=== PATIENT | female | born 1990 | race Caucasian/White ===

== ENCOUNTER 2020-06-24 13:00 | Outpatient (RCR) | payer BC, SELFPAY ==
--- NOTE | 2020-06-24 14:30 | PC.NURSE ---
IN 1300 OUT 1410 HISTORY: Pt. delivered by emergency C/S at 38 weeks. had no complications after delivery. Mother had complications after delivery of large 2000 EBL. is now 14 days/weeks old. Infant appears to be well cared for. has been seen by ICP as scheduled. Infant last seen by ICP on Mother reports: She had an emergency C/S with a large blood loss. Infant was well in the hospital and had some weight loss. At 1 week appointment infant was down more than 10% from weight. ICP advised to supplement after breastfeedings. Mother states she was concerned with supplementation and stimulation of supply. Mother began finger feeding using a 5 Bengali feeding tube and syringe. Mother states she does not give the supplementation quickly as she does not want to discourage from . Mother puts infant to breast each feeding, reporting infant is fussy and will quickly fall asleep, mother will attempt for 15-20 minutes, then finger feed and pump for 20 minutes. Mother is pumping drops each session. Mother wishes: To increase supply and exclusively breastfeed. Currently at 4 wets per day and 4 small brown pasty stools per day. weight: 7#7 Discharge weight: ?? Mother does not remember Last Weight: 6#10 OBSERVATION: Mother is crying and very distraught, stating over and over she wants to exclusively breastfeed this . Mother states she had milk supply issues with first issue and never thought she would have to deal with low milk supply. Discussed how the large blood loss after delivery may have impacted mother's milk supply, and how at 2 weeks out it may be hard to increase supply. Mother has had adequate stimulation, diet and fluids without success. Mother is currently putting to breast 15-20minutes with 2-3 minutes of nursing. Mother has issues comprehending milk supply will not increase to exclusively breastfeed. Assured mother she had not done anything to cause the low milk supply and is doing everything correct with stimulation and attempting to breast. Offered and explained the Supplemental Nursing System(SNS) for mother as an alternative to finger feed, while having infant at breast. Mother is willing to attempt this feeding with the SNS. SNS filled with 2 oz of formula, demonstrated and explained the set up. With tube taped to nipple, infant eagerly latched and began nursing. Mother was able to independently latch using cross cradle and holding breast. eagerly latched and began nursing with rhythmic draws and freq swallowing noted. Infant completed 2 oz in less than 15 minutes. Reviewed if is at breast with SNS mother will also be receiving nursing stimulation and infant will receive all the milk mother has and may assist with a slight increase of supply. Mother states she feels confident to use the SNS at home. Advised to give infant the full 2 oz each feeding and increase as desires. Mother is very fixated on milk supply with crying and reporting this is all she thinks about. FOB is present for appointment. Suggested mother contact her OB for evaluation of PPD, FOB reports he will remind mother to call this afternoon. PLAN: Mother will follow above feeding plan using techniques for SNS feeder. Mother will call with further questions or concerns. Follow up phone call scheduled for 06/28/2020.
== END 2020-08-05 09:08 | disposition home or self-care (01) ==
LOC: ANHOBOP 13:00
PROVIDERS: Visit Provider Pediatrics
DX: Z39.1 Encounter for care and examination of lactating mother (principal)
CPT/HCPCS: 99212; G0463

== ENCOUNTER 2021-06-14 11:49 | Outpatient (CLI) | payer BC, SELFPAY ==
[2021-06-14 13:52] LABS: Beta HCG Quantitative 201.98 mIU/ML
== END 2021-06-14 11:50 | disposition home or self-care (01) ==
PROVIDERS: PCP Family Medicine Adolescent Medicine
DX: Z32.01 Encounter for pregnancy test, result positive (principal)
CPT/HCPCS: 36415; 84144; 84702

== ENCOUNTER 2021-06-19 12:10 | Emergency (ER) | payer BC, SELFPAY ==
--- NOTE | ~2021-06-19 | US_ITS ---
EXAMINATION: US OB <=14 wk fetus w TV DATE: 06/19/2021 15:47 INDICATION: Vaginal bleeding. HCG level 1500. TECHNIQUE: Real-time transabdominal and transvaginal obstetric ultrasound. FINDINGS: No prior studies for comparison. The uterus measures 9.5 x 6.5 x 5.7 cm. There is an intrauterine fluid collection with possible decid ual reaction which would correspond to a 4 week 6 day gestational sac (measurement 0.31 cm). No heart motions or pole identified. There is a 2.1 cm corpus luteal cyst. Left ovary is unremark able. IMPRESSION: 1. Possible intrauterine gestational sac which would correspond to a 4 week 6 day gestation. No pole or heart motions detected. Recommend follow-up with serial quantitative beta-hCG levels and ult rasound as clinically indicated. Reviewed, dictated and finalized at location A. IMPRESSION: 1. Possible intrauterine gestational sac which would correspond to a 4 week 6 d ay gestation. No pole or heart motions detected. Recommend follow-up with serial quantitative beta-hCG levels and ultrasound as clinically indicated.
[2021-06-19 12:12] VITALS: BP 122/76; PULSE 99; RESP 20; TEMP 36.9; O2SAT 98
[2021-06-19 13:57] LABS: Basophils Percent Auto 0.5 % (0.2-1.2); Eosinophils Absolute Auto 0.5 K/mm3 (0-0.3); Eosinophils Percent Auto 6.4 % (0-4.4); Hematocrit 38.6 % (37.0-47.0); Hemoglobin 12.4 g/dL (12.0-15.0); Immature Granulocyte Absolute 0.02 K/mm3 (0.00-0.031); Immature Granulocyte Percent A 0.3 % (0-0.5); Lymphocytes Absolute Auto 1.25 K/mm3 (0.9-3.2); Lymphocytes Percent Auto 16.3 % (18.3-44.2); Mean Corpuscular HGB Conc 32.1 g/dl (32-36); Mean Corpuscular Volume 93.5 fl (80-100); Mean Platelet Volume 9.5 fl (7.4-10.4); Monocytes Absolute Auto 0.5 K/mm3 (0.1-0.6); Monocytes Percent Auto 6.9 % (2.6-8.5); Neutrophils Absolute Auto 5.3 K/mm3 (1.3-6.7); Neutrophils Percent Auto 69.6 % (45.5-73.1); Platelet Count Result 191 k/mm3 (150-375); Red Blood Count 4.13 M/mm3 (4.2-5.4); Red Cell Distribution Width 13.3 % (11.5-14.5); White Blood Count 7.7 K/mm3 (4.5-10.0)
[2021-06-19 14:01] VITALS: BP 117/68; PULSE 80; RESP 12; O2SAT 98
[2021-06-19 15:16] VITALS: BP 106/72; PULSE 70; RESP 14; O2SAT 98
--- NOTE | 2021-06-19 15:49 | ED.FEMALEGU ---
HPI - Female Genitourinary General Chief complaint: Vaginal Bleeding Stated complaint: 6 weeks /bleeding Time Seen by Provider: 06/19/21 12:36 Source: patient Mode of arrival: ambulatory Limitations: no limitations History of Present Illness HPI Narrative: 30-year-old female She is G 4-5, P2, A2 Current EGA 6 weeks and is taking supplemental progesterone because of her 2 previous miscarriages and had outpatient hCG levels done last week which, although they were done at different labs, were rising Today she noticed some spotting after urinating, it was not enough to saturate a single pad and the pad she is now using is dry She does not have cramps, dysuria, or dizziness She knows her blood type, a positive Related Data Home Medications Medication Instructions Recorded Confirmed aripiprazole [Abilify] 7.5 mg PO DAILY 06/19/21 06/19/21 lamotrigine 50 mg PO DAILY 06/19/21 06/19/21 progesterone micronized 200 mg PO DAILY 06/19/21 06/19/21 Allergies Allergy/AdvReac Type Severity Reaction Status Date / Time No Known Allergies Allergy Verified 06/19/21 12:15 Review of Systems Review of Systems: All systems reviewed & are unremarkable except as noted in HPI and below Constitutional: Constitutional: Reports no additional constitutional complaints, Denies chills, Denies fever(s) and Denies headache(s) Eyes: Eyes: Reports no additional eye complaints and Denies change in vision ENT: Denies headache(s) and Denies sore throat Cardiovascular: Cardiovascular: Denies chest pain and Denies dyspnea Respiratory: Respiratory: Denies cough and Denies dyspnea Gastrointestinal: Gastrointestinal: Denies abdominal pain, Denies diarrhea, Denies nausea and Denies vomiting Genitourinary: Genitourinary: Reports abnormal vaginal bleeding, Denies urinary frequency, Denies dysuria and Denies pelvic pain Musculoskeletal: Musculoskeletal: Denies deformity and Denies numbness Integumentary/Breasts: Skin/Breast: Denies wounds Psychiatric: Psychiatric: Reports no additional psychiatric complaints Endocrine: Endocrine: Reports no additional endocrine complaints Hematologic/Lymphatic: Hematologic/Lymphatic: Reports no additional hematologic/lymphatic complaints Allergic/Immunologic: Allergic/Immunologic: Reports no additional allergic/immunologic complaints PMFSH Past Medical History Medical History (Updated 06/19/21 @ 16:31 by Carl Cobos MD) ADHD (attention deficit hyperactivity disorder) Bipolar I disorder with depression Cleft lip Surgical History Surgical History (Updated 03/22/21 @ 11:47 by Arelis Huff MD) H/O cleft lip repair Hx of section x2 Family History Family History (Updated 03/22/21 @ 11:06 by Kesha Putnam) Father AA (alcohol abuse) Diabetes mellitus Hypertension Depression Social History Social History (Updated 03/22/21 @ 11:49 by Arelis Huff MD) Social History: Smoking packs per day: 0.5 Smoking cigarettes per day: 10.0 Years smoked: 5 Smoking pack-years: 2.50 Smoking status: Former smoker Tobacco type: e-cigarettes/vaping Second hand tobacco smoke exposure: No Additional smoking assessment comments: weaning off vaping Alcohol intake: current Drinks per week: 1 Substance use: never Substance use type: does not use 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
[2021-06-19 16:40] VITALS: BP 109/72; PULSE 70; RESP 12; O2SAT 99
== END 2021-06-19 16:40 | disposition home or self-care (01) ==
PROVIDERS: Emergency Provider Emergency Medicine; PCP Family Medicine Adolescent Medicine
DX: Z34.01 Encounter for supervision of normal first pregnancy, first trimester (principal); Z87.891 Personal history of nicotine dependence
CPT/HCPCS: 36415; 76801; 76817; 84702; 85025; 99284

== ENCOUNTER 2021-08-10 21:33 | Emergency (ER) | payer BC, SELFPAY ==
[2021-08-10 22:22] VITALS: BP 110/64; PULSE 80; RESP 18; TEMP 36.5; O2SAT 100
[2021-08-10 23:09] LABS: Add Urine Microscopic? YES; Appearance Urine Cloudy (Clear); Bilirubin Urine Negative (Negative); Blood Urine 1+ (Negative); Color Urine Yellow (Yellow); Glucose Urine UA Negative (Negative); Ketones Urine Negative (Negative); Leukocyte Esterase Ur Negative LEU/UL (Negative); Mucus Urine Rare /lpf; Nitrate Urine Negative (Negative); Protein Urine Negative (Negative); Specific Grav Ur 1.028 (1.001-1.035); Squamous Epithelial Cell Urine Few /hpf (Few); Urobilinogen Urine Negative mg/dL (<2.0); WBC Urine 0-3 /hpf
[2021-08-10 23:24] LABS: Basophils Absolute Auto 0.1 K/mm3 (0.0-0.1); Basophils Percent Auto 0.6 % (0.2-1.2); Eosinophils Absolute Auto 0.3 K/mm3 (0-0.3); Eosinophils Percent Auto 3.1 % (0-4.4); Hemoglobin 12.3 g/dL (12.0-15.0); Immature Granulocyte Absolute 0.04 K/mm3 (0.00-0.031); Immature Granulocyte Percent A 0.4 % (0-0.5); Lymphocytes Absolute Auto 1.94 K/mm3 (0.9-3.2); Lymphocytes Percent Auto 21.6 % (18.3-44.2); Mean Corpuscular HGB Conc 33.2 g/dl (32-36); Mean Corpuscular Hemoglobin 30.5 pg (26-34); Mean Corpuscular Volume 91.8 fl (80-100); Mean Platelet Volume 9.1 fl (7.4-10.4); Monocytes Absolute Auto 0.5 K/mm3 (0.1-0.6); Monocytes Percent Auto 5.6 % (2.6-8.5); Neutrophils Absolute Auto 6.2 K/mm3 (1.3-6.7); Neutrophils Percent Auto 68.7 % (45.5-73.1); Platelet Count Result 230 k/mm3 (150-375); Red Blood Count 4.03 M/mm3 (4.2-5.4); Red Cell Distribution Width 13.5 % (11.5-14.5)
--- NOTE | 2021-08-11 00:02 | ED.NAVMDI ---
HPI - Nausea/Vomiting/Diarrhea General Chief complaint: Nausea/Vomiting/Diarrhea Stated complaint: vomiting/12 weeks preg Time Seen by Provider: 08/10/21 23:06 Source: patient Mode of arrival: ambulatory Limitations: no limitations History of Present Illness HPI Narrative: 30-year-old female G5, P3 EGA 12 weeks complaining of 1 day history of intractable vomiting. Patient had potato dumplings and since 5 PM she has been vomiting at first food and now bilious vomiting. No hematemesis, she does have abdominal pain with vomiting. No lower abdominal pain no pelvic pain no vaginal bleeding no vaginal discharge. Patient denies flank pain no dysuria no hematuria. Patient states no previous history of same. During her other pregnancies no fever abdominal pain is located bilateral subcostal and is sharp when she vomits. Improves without vomiting. Patient was told by BOX CAR LOADER to come in to make sure she was not dehydrated. No other complaints Related Data Home Medications Medication Instructions Recorded Confirmed aripiprazole [Abilify] 7.5 mg PO DAILY 06/19/21 06/19/21 lamotrigine 50 mg PO DAILY 06/19/21 06/19/21 progesterone micronized 200 mg PO DAILY 06/19/21 06/19/21 Allergies Allergy/AdvReac Type Severity Reaction Status Date / Time No Known Allergies Allergy Verified 06/19/21 12:15 Review of Systems Review of Systems: CONSTITUTIONAL: no fever, no weight loss, no confusion EYES: no vision changes, no eye pain ENT: no rhinorrhea, no sore throat, no difficulty swallowing CARDIOVASCULAR: no chest pain, no leg edema, no palpitations RESPIRATORY: no cough, no shortness of breath, no hemoptysis GASTROINTESTINAL: positive abdominal pain, positive nausea, positive vomiting, no diarrhea GENITOURINARY: no flank pain, no dysuria, no hematuria SKIN: no rash, no jaundice MUSCULOSKELETAL: no back pain, no trauma. NEUROLOGIC: No headache, no dizziness, no focal weakness PSYCHIATRIC: No hallucinations, no suicidal ideation PMFSH Past Medical History Medical History ADHD (attention deficit hyperactivity disorder) Bipolar I disorder with depression Cleft lip Surgical History Surgical History H/O cleft lip repair Hx of section x2 Family History Family History Father AA (alcohol abuse) Diabetes mellitus Hypertension Depression Social History Social History Social History: Smoking packs per day: 0.5 Smoking cigarettes per day: 10.0 Years smoked: 5 Smoking pack-years: 2.50 Smoking status: Former smoker Tobacco type: e-cigarettes/vaping Second hand tobacco smoke exposure: No Additional smoking assessment comments: weaning off vaping Alcohol intake: current Drinks per week: 1 Substance use: never Substance use type: does not use 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 Gender identity (if verbalized by the patient): Female Sexual Orientation (if Verbalized by the Patient): Straight or Heterosexual Spiritual care concerns: No Agree to blood products: Yes Exam Narrative: General: alert, afebrile, answering all questions appropriately Head: normocephalic, atraumatic Eyes: EOMI bilaterally, anicteric, no injection ENT: moist mucous membranes, oropharynx patent, no rhinorrhea Neck: supple, trachea midline, no JVD Chest: equal chest rise bilaterally, no chest wall trauma noted Abd: soft, non-distended, mild diffuse tenderness, no rebound, no gaurding, negative Harley's : no CVA tenderness B, bladder non-distended EXT: no deformity noted, moving all extremities equally Skin: warm, dry, no pallor Neuro: alert, oriented x 3; CN 2-12 grossly intact, no dysarthria Psych: affect appropriate, though content normal Course Course Emergency
[2021-08-11] MEDS: SODIUM CHLORIDE 0.9% IV 1,000 ML 999 ML IV CONT (00:10)
[2021-08-11] MEDS: diphenhydrAMINE HCl INJ 50 MG/ML VIAL 25 MG IV PUSH (00:11)
[2021-08-11] MEDS: METOCLOPRAMIDE HCL INJ 10 MG/2 ML VIAL 5 MG IV PUSH (00:12)
[2021-08-11 00:49] LABS: Alanine Aminotransferase 12 U/L (4-35); Albumin Level 4.2 g/dL (3.5-5.1); Alkaline Phosphatase 37 U/L (38-126); Anion Gap 10 mmol/L (8-16); Aspartate Amino Transferase 22 U/L (14-36); Bilirubin,Total 0.4 mg/dL (0.2-1.3); Blood Urea Nitrogen 17 mg/dL (7-17); Calcium 8.9 mg/dL (8.4-10.2); Carbon Dioxide 18 mmol/L (22-30); Chloride 107 mmol/L (98-107); Estimated CRCL calculation 120 ml/min; Estimated Glomerular Filt Rate > 60; Glucose 86 mg/dL (65-110); Lipase 81 U/L (23-300); Sodium 135 mmol/L (137-145)
--- NOTE | 2021-08-11 01:41 | PC.NURSE ---
wendy ice chips
[2021-08-11 01:57] VITALS: BP 105/65; PULSE 75; RESP 18; O2SAT 100
== END 2021-08-11 02:30 | disposition home or self-care (01) ==
PROVIDERS: Family Medicine; Emergency Provider Emergency Medicine; PCP Family Medicine Adolescent Medicine
DX: O21.0 Mild hyperemesis gravidarum (principal); Z3A.12 12 weeks gestation of pregnancy; O99.341 Other mental disorders complicating pregnancy, first trimester; F31.9 Bipolar disorder, unspecified
CPT/HCPCS: 36415; 80053; 81001; 83690; 85025; 96361; 96374; 96375; 99284; J1200; J2765; J7030

== ENCOUNTER 2022-11-02 17:25 | Emergency (ER) | payer BC, SELFPAY ==
[2022-11-02] VITALS (10 sets, daily range): BP systolic 118–140; BP diastolic 77–88; PULSE 79–106; RESP 15–19; TEMP 36.7; O2SAT 100
--- NOTE | ~2022-11-02 | XR_ITS ---
EXAMINATION: XR chest 2V 11/02/2022 19:40 INDICATION: Tachycardia. Shortness of breath. PROCEDURE: 2 view chest COMPARISON: 10/21/2020 FINDINGS: The lungs are clear. The cardiomediastinal silhouette is within normal limits. There are no pleural effusions. There is no pneumothorax suspected. IMPRESSION: 1: NO ACUTE CARDIOPULMONARY DISEASE. Reviewed, dictated and finalized at location A. NSIVE CARE MEDICINE SPECIALIST
--- NOTE | 2022-11-02 17:30 | ECG_ITS ---
Measurements Intervals [place] Rate: 88 P: 62 IA: 142 QRS: 73 QRSD: 86 T: 50 QT: 318 QTc: 386 Interpretive Statements SINUS RHYTHM BORDERLINE T WAVE ABNORMALITY- ANTERIOR LEADS BASELINE WANDER- II, III, AVF BORDERLINE ECG NO PREVIOUS ECG AVAILABLE FOR COMPARISON Electronically Signed On 11-02-2022 20:23:01 [employer] by Dylan Murdock D.O.
[2022-11-02 19:12] LABS: Basophils Percent Auto 0.5 % (0.2-1.2); Eosinophils Absolute Auto 0.2 K/mm3 (0-0.3); Eosinophils Percent Auto 2.3 % (0-4.4); Hematocrit 45.6 % (37.0-47.0); Hemoglobin 14.9 g/dL (12.0-15.0); Immature Granulocyte Absolute 0.02 K/mm3 (0.00-0.031); Immature Granulocyte Percent A 0.2 % (0-0.5); Lymphocytes Absolute Auto 1.84 K/mm3 (0.9-3.2); Lymphocytes Percent Auto 22.6 % (18.3-44.2); Mean Corpuscular HGB Conc 32.7 g/dl (32-36); Mean Corpuscular Volume 88.7 fl (80-100); Mean Platelet Volume 8.6 fl (7.4-10.4); Monocytes Absolute Auto 0.5 K/mm3 (0.1-0.6); Monocytes Percent Auto 6.1 % (2.6-8.5); Neutrophils Absolute Auto 5.6 K/mm3 (1.3-6.7); Neutrophils Percent Auto 68.3 % (45.5-73.1); Platelet Count Result 337 k/mm3 (150-375); Red Blood Count 5.14 M/mm3 (4.2-5.4); Red Cell Distribution Width 14.4 % (11.5-14.5); White Blood Count 8.1 K/mm3 (4.5-10.0)
[2022-11-02 19:28] LABS: Anion Gap 10 mmol/L (8-16); Blood Urea Nitrogen 16 mg/dL (7-17); Calcium 9.6 mg/dL (8.4-10.2); Carbon Dioxide 27 mmol/L (22-30); Chloride 102 mmol/L (98-107); Estimated CRCL calculation 90 ml/min; Estimated Glomerular Filt Rate > 60; Glucose 94 mg/dL (65-110); Magnesium 2.2 mg/dL (1.6-2.3); Potassium 4.2 mmol/L (3.4-5.0); Sodium 139 mmol/L (137-145)
--- NOTE | 2022-11-02 19:33 | ED.ARRPALP ---
HPI - Arrhythmia/Palpitations General Chief Complaint: Arrhythmia/Palpitations Stated Complaint: palpatations Time Seen by Provider: 11/02/22 18:18 History of Present Illness HPI narrative: Patient is a 32-year-old female presenting with palpitations and lightheadedness. 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 States that it felt like it was beating fast and her apple watch said her heart rate was between 130s and 150s. States that she also felt short of breath and lightheaded. She was placed on the monitor which looked like sinus tachycardia. Unfortunately she continued to feel lightheaded so she came in for evaluation. She denies any chest pain. She states that she feels short of breath when she talks or walks. States that she still feels a bit lightheaded. No recent fevers or chills, cough, abdominal pain, vomiting, diarrhea, leg swelling. No recent travel, surgeries, trauma. Related Data Home Medications Medication Instructions Recorded Confirmed dextroamphetamine-amphetamine ER 30 mg PO DAILY 11/03/22 11/03/22 30 mg 24hr capsule,extend release lamotrigine 25 mg tablet 100 mg PO DAILY 11/03/22 11/03/22 Allergies Allergy/AdvReac Type Severity Reaction Status Date / Time No Known Allergies Allergy Verified 11/03/22 14:03 Review of Systems Review of Systems: All systems reviewed & are unremarkable except as noted in HPI and below PMFSH Past Medical History Medical History ADHD (attention deficit hyperactivity disorder) Bipolar I disorder with depression Cleft lip Surgical History Surgical History H/O cleft lip repair Hx of section x2 Family History Family History Father AA (alcohol abuse) Diabetes mellitus Hypertension Depression Social History Social History Social History: Smoking packs per day: 0.5 Smoking cigarettes per day: 10.0 Years smoked: 5 Smoking pack-years: 2.50 Smoking status: Former smoker Tobacco type: e-cigarettes/vaping Second hand tobacco smoke exposure: No Additional smoking assessment comments: weaning off vaping Alcohol intake: current Substance use: never Substance use type: does not use Living arrangements: with family Occupation/Education: occupation 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 HEAD: Normocephalic, atraumatic. EYES: PERRLA and EOMI. ENT: Nares clear, no rhinorrhea or epistaxis. Mucous membranes moist. NECK: Supple. CHEST: Clear to auscultation. No respiratory distress. HEART: Regular rate and rhythm. No murmur heard. Normal peripheral pulses. ABDOMEN: Soft, nontender, nondistended, normal active bowel sounds. EXTREMITIES: Normal range of motion. No edema. SKIN: Warm, dry, no rash. NEURO: No focal deficits. Alert and oriented x3. PSYCH: Normal mood and affect. Course Vital Signs Vital signs: Vital Signs Temperature 98.1 F 11/02/22 17:27 Pulse Rate 106 H 11/02/22 17:27 Respiratory Rate 18 11/02/22 17:27 Blood Pressure 140/77 11/02/22 17:27 Pulse Oximetry 100 11/02/22 17:27 Oxygen Delivery Room Air 11/02/22 17:27 Temperature 98.1 F 11/02/22 17:27 Pulse Rate 92 11/02/22 20:53 Respiratory Rate 15 11/02/22 20:33 Blood Pressure 123/86 11/02/22 20:33 Pulse Oximetry 100 11/02/22 20:33 Oxygen Delivery Room Air 11/02/22 17:27 MDM - Arrhythmia/Palp
[2022-11-02] MEDS: SODIUM CHLORIDE 0.9% IV 1,000 ML 999 ML IV CONT (19:52)
[2022-11-02 20:01] LABS: D Dimer < 0.27 ug/mL (<0.48)
[2022-11-02 20:08] LABS: Beta HCG Quantitative < 2.39 mIU/ML
[2022-11-02 21:09] LABS: Troponin I < 0.012 ng/mL (0.000-0.034)
== END 2022-11-02 22:06 | disposition home or self-care (01) ==
PROVIDERS: Emergency Provider Emergency Medicine; PCP Family Medicine
DX: R00.2 Palpitations (principal); R42 Dizziness and giddiness; F90.9 Attention-deficit hyperactivity disorder, unspecified type; F31.9 Bipolar disorder, unspecified; F17.290 Nicotine dependence, other tobacco product, uncomplicated; R94.31 Abnormal electrocardiogram [ECG] [EKG]
CPT/HCPCS: 36415; 71046; 80048; 83735; 84484; 84702; 85025; 85380; 93005; 96360; 96361; 99284; J7030

== ENCOUNTER 2022-11-08 13:36 | Outpatient (CLI) | payer BC, SELFPAY ==
[2022-11-08 18:16] LABS: Thyroid Stimulating Hormone Reflex 0.825 uIU/mL (0.465-4.68)
== END 2022-11-08 13:37 | disposition home or self-care (01) ==
PROVIDERS: PCP Family Medicine; Visit Provider Nurse Practitioner Gerontology
DX: F31.9 Bipolar disorder, unspecified (principal)
CPT/HCPCS: 36415; 84443

== ENCOUNTER 2023-09-18 11:16 | Outpatient (CLI) | payer BC, SELFPAY ==
[2023-09-18 12:02] LABS: Alanine Aminotransferase 14 U/L (6-35); Albumin Level 4.6 g/dL (3.5-5.1); Alkaline Phosphatase 60 U/L (38-126); Anion Gap 9 mmol/L (8-16); Aspartate Amino Transferase 22 U/L (14-36); Bilirubin,Total 0.8 mg/dL (0.2-1.3); Blood Urea Nitrogen 15 mg/dL (7-17); Calcium 9.1 mg/dL (8.4-10.2); Carbon Dioxide 24 mmol/L (22-30); Chloride 103 mmol/L (98-107); Cholesterol 126 mg/dL (0-200); Estimated Glomerular Filt Rate > 60; Glucose 95 mg/dL (65-110); HDL Direct 52 mg/dL; Potassium 4.2 mmol/L (3.4-5.0); Sodium 136 mmol/L (137-145); Triglycerides 49 mg/dL (<150)
[2023-09-18 12:05] LABS: Basophils Percent Auto 0.5 % (0.2-1.2); Eosinophils Absolute Auto 0.2 K/mm3 (0-0.3); Hematocrit 40.2 % (37.0-47.0); Hemoglobin 12.8 g/dL (12.0-15.0); Immature Granulocyte Absolute 0.02 K/mm3 (0.00-0.031); Immature Granulocyte Percent A 0.3 % (0-0.5); Lymphocytes Absolute Auto 1.41 K/mm3 (0.9-3.2); Mean Corpuscular HGB Conc 31.8 g/dl (32-36); Mean Corpuscular Hemoglobin 29.1 pg (26-34); Mean Corpuscular Volume 91.4 fl (80-100); Mean Platelet Volume 9.4 fl (7.4-10.4); Monocytes Absolute Auto 0.5 K/mm3 (0.1-0.6); Monocytes Percent Auto 6.2 % (2.6-8.5); Neutrophils Absolute Auto 5.4 K/mm3 (1.3-6.7); Platelet Count Result 221 k/mm3 (150-375); White Blood Count 7.4 K/mm3 (4.5-10.0)
[2023-09-18 12:19] LABS: LDL Cholesterol Direct 54 mg/dL
[2023-09-18 12:28] LABS: Hemoglobin A1C 5.6 % (<5.7)
[2023-09-18 13:11] LABS: Folic Acid 5.8 ng/mL (2.76->20)
[2023-09-18 13:14] LABS: Iron 22 ug/dL (37-170); Percent Iron Saturation 7 % (20-50); Vitamin D 25 Hydroxy 38.4 ng/mL
[2023-09-18 13:48] LABS: Erythrocyte Sedimentation Rate 19 mm/hr (0-20)
== END 2023-09-18 11:17 | disposition home or self-care (01) ==
PROVIDERS: PCP Family Medicine
DX: R53.82 Chronic fatigue, unspecified (principal)
CPT/HCPCS: 36415; 80053; 80061; 82306; 82607; 82728; 82746; 83036; 83540; 83550; 84443; 85025; 85652

== ENCOUNTER 2023-09-24 09:56 | Outpatient (CLI) | payer BC, SELFPAY ==
[2023-09-27 18:38] LABS: ANA Cascade Screen Negative (Negative)
== END 2023-09-24 09:57 | disposition home or self-care (01) ==
LOC: ANHLAB 09:58
PROVIDERS: PCP Family Medicine; Visit Provider Physician Assistant
DX: R53.83 Other fatigue (principal)
CPT/HCPCS: 36415; 86038; 86225; 86235; 86364

== ENCOUNTER → 2023-09-24 14:00 | Outpatient (CLI) | payer BC, SELFPAY ==
--- NOTE | ~2023-09-24 | XR_ITS ---
EXAMINATION:XR_[id number]_CR DATE: 09/24/2023 14:16 INDICATION: Neck pain TECHNIQUE: AP, lateral, and odontoid views of the cervical spine are provided. COMPARISON: None FINDINGS: There is straightening of the cervical spine which can be positional or due to muscular spa sm. Alignment is normal. The odontoid process is intact. No fracture is identified. Vertebral body he ights and disk spaces are normal. Prevertebral soft tissues are normal. IMPRESSION: 1. No acute osseous abnormality. Reviewed, dictated and finalized at location B. ISITIONS ANALYST
== END ==
PROVIDERS: PCP Family Medicine; Visit Provider Physician Assistant
DX: M54.2 Cervicalgia (principal)
CPT/HCPCS: 72040

== ENCOUNTER 2023-10-12 14:19 | Outpatient (CLI) | payer BC, SELFPAY ==
--- NOTE | ~2023-10-12 | CT_ITS ---
EXAMINATION: CT sinus wo con DATE: 10/12/2023 14:35 INDICATION: Frontal headache. Bilateral nasal congestion, chronic sinusitis. History of nasal surgeri es. TECHNIQUE: Computed tomography (CT) of the paranasal sinuses was performed without contrast. Iterativ e reconstruction technique was employed. Exam dose: 272.05 mGy-cm total exam DLP. COMPARISON: None FINDINGS: There is mild leftward deviation of the anterior nasal septum. Bilateral nasal turbinate soft tissue swelling. There is vira bullosa and intralamellar cell of the left middle nasal turbinate and lesser intralamellar cell of right middle nasal turbinate. There is partial soft tissue opacification of the right infundibulum. The ostiomeatal units are other horne patent. The frontal sinuses and ethmoid air cells are normally developed and aerated. There is an approximately 8 mm mucus retention cyst or polyp along the right lateral maxillary sinus wall and up to 9.5 mm mucus retention cyst or polyp at the floor of the right maxillary sinus. There is slight mucoperiosteal thickening of the left maxillary sinus. There is focal prominent soft tissue thickening in the anterolateral aspect of the right sphenoid sin us. The sphenoid sinuses are otherwise unremarkable. The mastoid air cells are normally developed and aerated bilaterally. Middle and inner ear apparatus appear normal bilaterally. IMPRESSION: Mild leftward septal deviation Vira bullosa of left middle nasal turbinate and and bilateral intralamellar cell of middle nasal tu rbinates Partial opacification of right epididymal 8 and 9.5 mm mucus retention cysts or polyps right maxillary sinus Focal prominent soft tissue thickening in the anterolateral right sphenoid sinus Reviewed, dictated and finalized at [facility]. Reviewed, dictated and finalized at location B. WELLNESS IMPRESSION: Mild leftward septal deviation Vira bullosa of left middle nasal turbinate and and bilateral intralamellar c ell of middle nasal turbinates Partial opacification of right epididymal 8 and 9.5 mm mucus retention cysts or polyps right maxillary sinus Focal prominent soft tissue thickening in the anterolateral right sphenoid sinu s
== END 2023-10-12 14:20 ==
PROVIDERS: PCP Otolaryngology; Visit Provider Otolaryngology
DX: J32.4 Chronic pansinusitis (principal); J34.2 Deviated nasal septum; J34.89 Other specified disorders of nose and nasal sinuses; M79.89 Other specified soft tissue disorders
CPT/HCPCS: 70486

== ENCOUNTER 2023-10-24 11:18 | Outpatient (CLI) | payer BC, SELFPAY ==
[2023-10-26 13:07] LABS: NIL 0.05 IU/mL; Quantiferon TB Plus, 1T NEGATIVE (NEGATIVE); TB1-NIL 0.01 IU/mL; TB2-NIL 0.03 IU/mL
== END 2023-10-24 11:19 | disposition home or self-care (01) ==
LOC: ANHLAB 11:19
PROVIDERS: PCP Otolaryngology; Visit Provider Physician Assistant
DX: Z11.1 Encounter for screening for respiratory tuberculosis (principal)
CPT/HCPCS: 36415; 86480

== ENCOUNTER 2023-10-28 04:00 | Emergency (ER) | payer BC, SELFPAY ==
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
[2023-10-28 04:08] VITALS: BP 125/78; PULSE 97; RESP 20; TEMP 36.3; O2SAT 100
--- NOTE | 2023-10-28 04:33 | PC.NURSE ---
Patient taken to xray from waiting room.
[2023-10-28] MEDS: HYDROcodone/acetaminophen (*CRX) 5-325 MG TABLET 1 TAB PO (05:59)
[2023-10-28] MEDS: TETANUS,DIPHTHERIA,AC PERTUSSIS ADULT (0.5 ML) BOOSTRIX IM (05:59)
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
[2023-10-28 06:05] VITALS: BP 125/83; PULSE 93; RESP 16; O2SAT 100
== END 2023-10-28 08:48 | disposition home or self-care (01) ==
PROVIDERS: Emergency Provider Emergency Medicine; PCP Family Medicine
DX: S60.222A Contusion of left hand, initial encounter (principal); S60.221A Contusion of right hand, initial encounter; S80.02XA Contusion of left knee, initial encounter; S70.01XA Contusion of right hip, initial encounter; S60.419A Abrasion of unspecified finger, initial encounter; Z23 Encounter for immunization; F90.9 Attention-deficit hyperactivity disorder, unspecified type; F31.9 Bipolar disorder, unspecified; F17.290 Nicotine dependence, other tobacco product, uncomplicated; Y04.8XXA Assault by other bodily force, initial encounter
CPT/HCPCS: 73130; 73502; 73562; 90471; 90715; 99284; A9270

== ENCOUNTER 2023-12-05 10:00 | Outpatient (RCR) | payer BC, SELFPAY ==
--- NOTE | 2023-10-04 13:08 | PTOPEVAL1 ---
Assessment and note entered by Jennifer Meléndez, PT Evaluation Information Assessment Status Evaluation Diagnosis cervicalgia, headaches unspec, weakness, abnormal posture Subjective Information Reports has been getting more headaches at least the last six months. Also has low back pain but her PCP was more concerned about her neck. Denies N/T through U[facility], fingers will get numb when gets cold but otherwise has not noted issues. Gradual onset. Feels has headaches more in the morning. Has not noticed a trend in pattern of when headaches come on. For headaches will take ibuprofen or tylenol, also for neck. Was prescribed Flexeril for night time. Has tried this for 4-5 nights but is still tense in the morning Reported Pain Level Pain Score 2,1: Self Report Assessment PT Clinical Summary Pt presents with cervicalgia and headaches. Has a history of cleft pallet surgery and sinus surgeries, is following up on sinuses with specialist to r/o cause of headaches. Evaluation today demo's decreased postural and core strength causing compensatory muscle tightness and guarding for stability likely as cause of neck pain and headaches. Pt also presented with pelvic obliquity that corrected easily today. Pt will benefit from therapy to address deficits, improve alignment, postural strength and stability, and reduce pain to meet patient goals. Plan of Care Interventions Electrical Stimulation,Hot Pack/Cold Pack,Manual Therapy,Neuro Re-education,Patient/Caregiver Educati,Therapeutic Activities,Therapeutic Exercise,Ultrasound PT Services Indicated Yes Treatment Frequency and 1-2x weekly x 8 weeks Duration These treatments will address the objective and functional deficits as defined above. The patient will be advanced safely and appropriately in order for the patient to progress towards his/her prior level of function. Additional exercises will be introduced and as well as a comprehensive home exercise program upon discharge, if needed, ?to ensure carryover of functional gains achieved in the clinic. This treatment plan has been reviewed and agreement upon by the patient.
--- NOTE | 2023-11-07 14:42 | PTOPPROG ---
Assessment and note entered by Jennifer Meléndez, PT Assessment Status Progress Report Diagnosis cervicalgia, headaches unspec abnormal posture, weakness Subjective Information Pt reports neck and headaches are doing pretty good , hasn't had a headache in a while. Neck doesn't feel as stiff as previously. Driving has been good, hasn't had to drive longer that 40 minutes but has done well with this. Reports is being more mindful of posture. Self-perceived improvement: 75% Assessment PT Clinical Summary Pt has attended 6 therapy sessions overall for her neck pain and headaches. She has been independent and consistent with her HEP and postural awareness/modifications as directed. She demo's improved ROM thoracic spine, range in cervical spine with less pain, improved thoracic and cervical alignment. Initiated core foundation exercises and education related to support of upper kinematic chain. Pt will benefit from continued therapy to continue postural reeducation , along with strengthening and endurance training of postural musculature. Plan of Care Interventions Electrical Stimulation,Hot Pack/Cold Pack,Manual Therapy,Neuro Re-education,Patient/Caregiver Educati,Therapeutic Activities,Therapeutic Exercise,Ultrasound PT Services Indicated Yes Treatment Frequency and 6 visits over 30 days Duration These treatments will address the objective and functional deficits as defined above. The patient will be advanced safely and appropriately in order for the patient to progress towards his/her prior level of function. Additional exercises will be introduced and as well as a comprehensive home exercise program upon discharge, if needed, ?to ensure carryover of functional gains achieved in the clinic. This treatment plan has been reviewed and agreement upon by the patient.
--- NOTE | 2023-11-27 16:54 | PCPTNOTE ---
Patient called & cancelled scheduled appointment this date due to illness. Pt requested reschedule but due to current schedule no appointments were available. Pt added to the treatment cancel list if appointment slot opens.
--- NOTE | 2023-12-06 10:29 | PTOPDC ---
Assessment and note entered by Jennifer Meléndez, PT Assessment Status Discharge Diagnosis cervicalgia, headaches unspec Subjective Information Pt reports is still doing pretty good. Doesn't remember when last had a headache. Is still going to have her sinus procedure due to sinus pressure. Pt reports has had to drive and hour and 45 minutes in one trip and did fine with this. Stretches a little with getting out of the car. Self-perceived improvement: 85% Still has some tightness in right upper trap. Doesn't hurt, but just feels stiff all the time. Hasn't been able to return to recreational fitness activities due to schedule Reported Pain Level Pain Score 0,0: Self Report Assessment PT Clinical Summary PT has attended 8 therapy sessions for headaches unspec and cervialgia. For this she reports feeling 85% improved overall, demos improved postures, ROM, and resting muscle tone. However she cont to feel tight on right neck/shoulder. Reevaluation today shows significant difference in shoulder height with right being lower. Assessment further down the kinematic chain shows abnormalities in the pelvic alignment that was unable to be corrected today with muscle energy techniques. 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 Discussed with patient plan of care related to pelvic and spinal alignment findings and how this would effect the remainder of her discomfort. It was decided for lower kinematic chain deficits pt will attempt other options for treatment and understands when to return to therapy if is not making progress. Plan of Care PT Services Indicated No
== END 2023-12-13 10:30 | disposition home or self-care (01) ==
LOC: ANHHIPT 10:00
PROVIDERS: PCP Family Medicine; Visit Provider Physician Assistant
DX: M54.2 Cervicalgia (principal); R51.9 Headache, unspecified
CPT/HCPCS: 97014; 97110; 97112; 97140; 97161; 97750; G0283

== ENCOUNTER 2024-02-19 12:44 | Outpatient (CLI) | payer BC, SELFPAY ==
--- NOTE | ~2024-02-19 | XR_ITS ---
AP view of the pelvis and AP and lateral views of the bilateral hips Clinical history: Pain Findings: No acute fracture or dislocation is seen. Osseous alignment is anatomic. Bilateral hip and SI joint spaces are preserved. Soft tissues are unremarkable. IUD in place. Impression: No significant abnormality is seen. Reviewed, dictated and finalized at location . Impression: No significant abnormality is seen.
--- NOTE | ~2024-02-19 | XR_ITS ---
Thoracic spine: Clinical Indication: Back pain AP and lateral views were performed. No fracture is seen. There is normal alignment of the vertebrae. The intervertebral disc spaces appe ar normal. Paravertebral soft tissues appear normal. Impression: No significant abnormalities noted. Reviewed, dictated and finalized at [facility]. Impression: No significant abnormalities noted.
--- NOTE | ~2024-02-19 | XR_ITS ---
Lumbosacral Spine: AP and lateral views Clinical History: Pain Findings: The normal lordotic curve is maintained. The vertebral bodies and posterior elements are i ntact. The intervertebral disc spaces are preserved. Mild facet arthropathy present at the lower lum bar spine. The sacroiliac joints are normally outlined. Impression: Mild facet arthropathy of the lower lumbar spine. Reviewed, dictated and finalized at location . Impression: Mild facet arthropathy of the lower lumbar spine.
== END 2024-02-19 12:45 ==
LOC: MICIMG 12:46
PROVIDERS: PCP Family Medicine; Visit Provider Physician Assistant
DX: M53.3 Sacrococcygeal disorders, not elsewhere classified (principal); M54.9 Dorsalgia, unspecified
CPT/HCPCS: 72070; 72100; 73521

== ENCOUNTER 2024-05-15 13:15 | Outpatient (RCR) | payer BC, SELFPAY ==
--- NOTE | 2024-03-05 13:21 | PTOPEVAL1 ---
Assessment and note entered by Jennifer Meléndez, PT Evaluation Information Assessment Status Evaluation Diagnosis Low back pain unspec, sacrococcygeal disorder not elsewhere classified Therapy Conditions cervicalgia abnormal posture weakness Onset 2021 Subjective Information Pt previously sought therapy for headaches and neck pain with success. States back and neck is always stiff. Upper traps are always stiff. Started with in 2021, was seeing chiropractor and it was supposed to get better, the it did not. States started worsening ~9months ago but at the time her headaches were worst so were addressed first. Now even though neck has worsened since completion of therapy is not as bad as prior to therapy. The other day her back was bad enough was crying. As the day progresses, back pain worsens. 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 3 pregnancies all sections with a diastasis recti. Wants to get back into gym but doesn't want to reinjure or worsen her issues. Has previously ( prior to most recent ) worked with a link trainer teacher for core and pelvic floor. Starts with waking in the morning every day tight in the lumbar. Tightness persists through the day, tries to roll it out. As starts moving through the day the pain increases Was recently prescribed prednisone taper, Celebrex , this does help, does not take regularly. Muscle relaxer at night helps 5/7 nights a week. Tyelenol and Motrin. Reported Pain Level Pain Score 2,3: Self Report Assessment PT Clinical Summary Pt presents with c/o low back pain that has persisted since her last and has worsened in the previous 9 months. She was also having severe headaches which she sought therapy for with significant success at the time. Her neck has since become more irritable though not to the extent it had been previously. Evaluation s
--- NOTE | 2024-03-05 13:23 | OPREHPOC ---
Outpatient Therapy Plan of Care This is a Multidisciplinary Plan of Care that may contain components documented by all disciplines (PT, OT, and ST.) PT Problem 1 PT Problem #1 Knowledge Deficit PT Goal 1 Goal Pt will be independent in HEP Pt will verbalize understanding of diagnosis and prognosis Target Visit 10 PT Problem 2 PT Problem #2 Pain PT Goal 1 Goal Pt will report lowest pain rating at 0/10 to show improvement in overall discomfort Target Visit 10 PT Goal 2 Goal Pt will report greatest pain level at 3/10 or less to improve ADLs and activities Target Visit 20 PT Problem 3 PT Problem #3 Impaired Strength PT Goal 1 Goal Pt will demo core strength of 3+/5 of the TRAM to improve lumbopelvic stability Target Visit 10 PT Goal 2 Goal Pt will demo strength of 4/5 in all tested planes Target Visit 20
--- NOTE | 2024-05-05 12:44 | PCPTNOTE ---
Patient called rescheduled appointment this date.
--- NOTE | 2024-05-19 16:02 | PTOPDC ---
Assessment and note entered by Jennifer Meléndez, PT Evaluation Information Assessment Status Discharge Diagnosis Low back pain unspec, sacrococcygeal disorder not elsewhere classified Onset 2021 Subjective Information Pt states is no longer taking Celebrex or muscle relaxer. Has been taking ibuprofen and Tylenol here and there more for neck and frontal headaches. Neck tension went from taking 1-2 doses a day to a couple a week. Tightness in the lumbar, has started a new bed but has not changed beds since starting therapy. Doesn't feel like is waking up stiff in the lumbar and thoracic, is very minimal. Self-perceived improvement: 80% 20% remainder does still feel stiff sometimes, and at the end of the long work day or a day with a lot going on is still getting stiff and sore but is not as bad in frequency and intensity. Stiffness in the morning is still in the neck and is trying different pillows. Assessment PT Clinical Summary Pt has attended therapy consistently for low back and mid back pain as well as neck discomfort. She has met all her therapy goals, reports feeling 80% improved overall, and pain ranges 0-3/10 depending on her activity level. Pt is thus being discharged from therapy for meeting her therapy goals, and demonstrating understanding of continued progression independently. Plan of Care PT Services Indicated No
== END 2024-05-19 16:09 | disposition home or self-care (01) ==
LOC: ANHHIPT 13:15
PROVIDERS: PCP Family Medicine; Visit Provider Physician Assistant
DX: M54.50 Low back pain, unspecified (principal); M53.3 Sacrococcygeal disorders, not elsewhere classified
CPT/HCPCS: 97014; 97110; 97112; 97140; 97162; 97750; G0283